=== PATIENT | female | born 1985 | race Caucasian/White ===

== ENCOUNTER 2018-10-04 08:25 | Emergency (ER) | payer MEDICAID, SELFPAY ==
[2018-10-04 08:33] VITALS: PULSE 91; RESP 17; RESP 4; RESP 8; O2SAT 94
[2018-10-04] MEDS: Albuterol/Ipratropium 3 ML UPD VIAL (08:33)
[2018-10-04 08:35] VITALS: BP 134/65; PULSE 89; RESP 17; O2SAT 94
--- NOTE | 2018-10-04 08:49 | DI.RAD_ITS ---
SYMPTOM/DIAGNOSIS: COUGH, SOB, ? PNEUMONIA PA AND LATERAL CHEST: The cardiac and mediastinal contours have a normal appearance. The lungs are well inflated and clear. No infiltrate or effusion is seen. IMPRESSION: Negative chest xray.
[2018-10-04] MEDS: Ondansetron 4 MG/2 ML VIAL (08:50)
--- NOTE | 2018-10-04 08:52 | W.ED.GENAD ---
Discharge Plan Disposition Patient Disposition: HOME Condition: Improving Discharge Details Chief Complaint: RespSymp Clinical Impression: Asthmatic bronchitis , chronic, Dyspnea, URI (upper respiratory infection) Primary Care Provider: None,None ED Provider: Nabila Briones Home Meds and New Rx's Prescriptions: New prednisone 50 mg tablet 50 mg PO DAILY 5 Days Qty: 5 RF: 0 azithromycin [Zithromax] 500 mg tablet 500 mg PO DAILY 4 Days Qty: 4 RF: 0 Continued ProAir HFA 90 mcg/actuation Hfa Aerosol Inhaler 1 puff INHALATION Q6H PRNRF: 0 Discharge Instructions Instructions: Asthma (ED), Upper Respiratory Infection (ED), Acute Bronchitis (ED) Additional Instructions: Go directly to [facility] to assist with filling her prescriptions. You will receive a call from care management regarding a follow-up appoint with primary care doctor. Return immediately to the emergency department any worsening or new concerning symptoms. Discharge Data Discharge Date/Time-TO BE ENTERED AT DEPARTURE: 10/04/18 10:38 Discharge Physician: Nabila Briones Medical Decision Making 32-year-old female with a history of asthma with URI symptoms for the past 2 weeks, and worsening shortness of breath since this morning. Arrived last night from [place] by airplane. Seen in ED in [place] 2 weeks ago and diagnosed with URI and sent home with steroid, antibiotics, and inhaler of which she could not fill due to lack of funds. Heart rate 90s. O2 sat 94% on room air. Patient feels improvement after first neb on arrival to ED. She has scattered wheezing throughout. Will give another neb treatment, due to recent travel and mild hypoxia, will check labs, d-dimer, chest x-ray and give a dose of Solu-Medrol and reassess. EKG notes a rate of 99, no acute ST elevation or depression. 1015 --patient feels much better after second neb treatment. Breath sounds improved and wheezing resolved. Still has somewhat diminished breath sounds in the bases for which she was offered a DuoNeb treatment but she declines and states she would like to go home. Labs and imaging reviewed and unremarkable. Normal white blood cell count. Negative d-dimer and troponin. Chest x-ray negative. Discussed with care management who discussed with patient at bedside regarding plans for filling prescriptions. Patient will go to [facility] today to assist with filling prescriptions. Will give 1 dose of Zithromax here as well as albuterol inhaler to go in addition to steroid and zithromax prescriptions. Also discussed with care management regarding plan for assistance with finding a primary care doctor. Patient instructed return here immediately if worse. Medical Records Medical records reviewed: Yes I reviewed the patient's medical records. Imaging Data Radiologic Study: Radiologist's impression: RAD:XR chest 2V PA & lateral SYMPTOM/DIAGNOSIS: COUGH, SOB, ? PNEUMONIA PA AND LATERAL CHEST: The cardiac and mediastinal contours have a normal appearance. The lungs are well inflated and clear. No infiltrate or effusion is seen. IMPRESSION: Negative chest xray. Lab Data Lab results reviewed: Yes I reviewed the patient's lab results. Laboratory Tests Range/Units 10/04/18 10/04/18 10/04/18 08:46 08:46 08:46 WBC (4.4-10.8) k/cumm 10.21 RBC (4.00-5.20) m/cumm 4.77 Hgb (12.0-15.5) g/dL 13.6 Hct (36.0-46.0) % 39.3 MCV (80-95) fL 82.4 MCH (27.0-33.0) pg 28.5 MCHC (32.0-36.0) g/dL 34.6 RDW (11.7-14.6) % 13.5 Plt Count (130-400) x1000/uL 279 MPV (8.0-11.0) fL 11.3 H Immature Gran % 0.3 Neutrophils % 58.7 Lymphocytes % 22.0 Monocytes % 10.4 Eosinophils % 8.3 Basophils % 0.3 Absolute Neutrophils (1.2-6.7) k/cumm 5.99 Absolute Lymphocytes (1.2-3.4) k/cumm 2.25 Absolute Monocytes (0.11-0.7) k/cumm 1.06 H Absolute Eosinophils (0.0-0.7) k/cumm 0.85 H Absolute Basophils (0.0-0.2) k/cumm 0.03 D-Dimer (<500) ng/mlFEU 235 Sodium (136-145) mmol/L 140 Potassium (3.5-5.1) mmol/L 3.4 L Chloride (98-107) mmol/L 105 Carbon Dioxide (21.0-32.0) mmol/L 24.1 Anion Gap (3-11) mmol/L 10.9 BUN (7-18) mg/dL 11 Creatinine (0.55-1.02) mg/dL 0.97 Estimated GFR/1.73 m2 (mL/min/1.73m2) >= 60.00 Glucose (70-100) mg/dL 105 H Calcium (8.5-10.1) mg/dL 8.9 Magnesium (1.8-2.4) mg/dL 2.0 Total Bilirubin (0.2-1.0) mg/dL 0.5 AST (15-37) U/L 18 ALT (12-78) U/L 32 Alkaline Phosphatase (46-116) U/L 72 Troponin I (0.00-0.06) ng/mL < 0.02 Total Protein (6.4-8.2) g/dL 7.5 Albumin (3.4-5.0) g/dL 3.6 ECG Data Attestation: I personally reviewed and interpreted this ECG (s) as follows: Interpretation: 0853: Rate of 99, sinus, no acute ST elevation or depression, QTC 477. QRS 104. HPI General Mode of arrival: ambulatory. Date/Time Provider Initiated Documentation: 10/04/18 08:34. Limitations to Documentation: no limitations. Information obtained by: patient. HPI Narrative: Patient is a 32-year-old female with a history of asthma who presents with shortness of breath since this morning. Patient states she has had dry cough, sore throat, runny nose, ear pain and intermittent shortness of breath for the past 2 weeks but states her shortness of breath became significantly worse and woke her up from sleep this morning. She states she had some shortness of breath before going to bed last night. She states last night she used her inhaler, and [id number] allergy medication, and applied Vicks. Patient states she recently ran out of her pro-air. She also admits to intermittent chest pain but denies any at present. She denies fever and states she did not receive a flu shot this year. Patient states she moved here from [place] last night in which she took 2 flights, 1 which was 90 minutes, and 1 which is 3 hours. She denies any leg pain or swelling or history of DVT or PE. Patient states she was seen in emergency department in [place] 2 weeks ago and diagnosed with URI and given steroids and neb treatment in the ED and discharged with steroid, antibiotic and inhaler but was not able to fill the prescription due to lack of funds. Patient denies any history of intubations. Related Data Home Medications Medication Instructions Recorded Confirmed ProAir HFA 1 puff INHALATION Q6H PRN 10/04/18 10/04/18 azithromycin [Zithromax] 500 mg PO DAILY 4 Days #4 tab 10/04/18 prednisone 50 mg PO DAILY 5 Days #5 tab 10/04/18 Previous Rx's Medication Instructions Recorded azithromycin [Zithromax] 500 mg PO DAILY 4 Days #4 tab 10/04/18 prednisone 50 mg PO DAILY 5 Days #5 tab 10/04/18 Allergies Allergy/AdvReac Type Severity Reaction Status Date / Time No Known Allergies Allergy Unverified 10/04/18 08:38 General Stated Complaint: RespSymp JEANETTE: 3 Review of Systems Review of Systems All systems reviewed & are unremarkable except as noted in HPI and below Constitutional Reports as per HPI, Denies chills and Denies fever(s) Eyes Denies blurry vision ENT Denies dizziness, Reports otalgia, Reports nasal congestion, Reports nasal discharge, Reports sore throat and Denies throat swelling Cardiovascular Reports chest pain and Reports dyspnea Respiratory Reports cough and Reports dyspnea Gastrointestinal Denies abdominal pain, Denies diarrhea and Denies vomiting Genitourinary Denies hematuria and Denies dysuria Musculoskeletal Denies back pain and Denies numbness Integumentary/Breasts Denies lesions and Denies rash Neurologic Denies dizziness and Denies numbness Allergic/Immunologic Denies throat swelling [facility] Medical History Scoliosis (Acute) Asthma (Chronic) Osteoarthritis (Chronic) Surgical History S/P wisdom tooth extraction (Acute) Social History Smoking/Tobacco Use Status: Never alcohol intake: current alcohol intake frequency: a few times a month substance use type: former substance user, marijuana and other Exam Const General: cooperative and healthy appearing Orientation: alert and awake HENMT Head: normal to inspection Ears: hearing grossly normal bilaterally, external ears normal and TM abnormal erythematous bilaterally General nose exam: external nose normal Face and sinus: normal facial exam Mouth: oral mucosae normal Teeth and gingiva: dentition normal Throat: posterior oropharynx normal Eyes General: appearance normal, both eyes and all related structures Eyelids: eyelids normal Pupils: PERRL EOM: EOM intact bilaterally Neck Neck: normal visual inspection Lymphatic: no lymphadenopathy noted Chest Chest: normal inspection of the chest Resp Effort & Inspection: normal respiratory effort and able to speak in complete sentences Auscultation: no rales, no rhonchi and wheezes scattered wheezes Cardio Rate: regular rate Rhythm: regular rhythm GI Inspection: normal to inspection Palpation: soft, not firm, no guarding, no hepatosplenomegaly, no masses and nontender Auscultation: normal bowel sounds Skin General skin exam: no rashes or lesions noted Neuro General: alert and awake Cognition: normal cognition Speech: speech normal Gait: normal gait Motor: muscle tone normal throughout Sensory Exam: no sensory deficits noted Extrem General: normal to inspection, full ROM, normal capillary refill, no calf tenderness and no edema Psych Appearance: grossly normal Mental Status: mental status grossly normal Speech and Movement: speech and movement normal Affect: normal affect Thought Process: normal Course Vital Signs Pulse 91 H 10/04/18 08:33 Respiratory Rate 17 10/04/18 08:33 Pulse Oximetry 94 L 10/04/18 08:33 Temperature Source Temporal Artery Scan 10/04/18 08:35 Pulse 89 10/04/18 08:35 Respiratory Rate 17 10/04/18 08:35 Respiratory Effort Short of Breath 10/04/18 08:43 Respiratory Depth Shallow 10/04/18 08:41 Blood Pressure 134/65 10/04/18 08:35 Blood Pressure Position Sitting 10/04/18 08:35 Pulse Oximetry 94 L 10/04/18 08:35 Oxygen Delivery Method Room Air 10/04/18 08:35 Oxygen Flow Rate 0 10/04/18 08:35 Pain Level 0 10/04/18 08:35
[2018-10-04] MEDS: Normal Saline Flush 10 ML SYR IVP (08:53)
--- NOTE | 2018-10-04 08:57 | ED.GENADUL_ITS ---
Discharge Plan Disposition Patient Disposition: HOME Condition: Improving Discharge Details Chief Complaint: RespSymp Clinical Impression: Asthmatic bronchitis , chronic, Dyspnea, URI (upper respiratory infection) Primary Care Provider: None,None ED Provider: Nabila Briones Home Meds and New Rx's Prescriptions: New prednisone 50 mg tablet 50 mg PO DAILY 5 Days Qty: 5 RF: 0 azithromycin [Zithromax] 500 mg tablet 500 mg PO DAILY 4 Days Qty: 4 RF: 0 Continued ProAir HFA 90 mcg/actuation Hfa Aerosol Inhaler 1 puff INHALATION Q6H PRNRF: 0 Discharge Instructions Instructions: Asthma (ED), Upper Respiratory Infection (ED), Acute Bronchitis (ED) Additional Instructions: Go directly to [facility] to assist with filling her prescriptions. You will receive a call from care management regarding a follow-up appoint with primary care doctor. Return immediately to the emergency department any worsening or new concerning symptoms. Discharge Data Discharge Date/Time-TO BE ENTERED AT DEPARTURE: 10/04/18 10:38 Discharge Physician: Nabila Briones Medical Decision Making 32-year-old female with a history of asthma with URI symptoms for the past 2 weeks, and worsening shortness of breath since this morning. Arrived last night from [place] by airplane. Seen in ED in [place] 2 weeks ago and diagnosed with URI and sent home with steroid, antibiotics, and inhaler of which she could not fill due to lack of funds. Heart rate 90s. O2 sat 94% on room air. Patient feels improvement after first neb on arrival to ED. She has scattered wheezing throughout. Will give another neb treatment, due to recent travel and mild hypoxia, will check labs, d-dimer, chest x-ray and give a dose of Solu-Medrol and reassess. EKG notes a rate of 99, no acute ST elevation or depression. 1015 --patient feels much better after second neb treatment. Breath sounds improved and wheezing resolved. Still has somewhat diminished breath sounds in the bases for which she was offered a DuoNeb treatment but she declines and states she would like to go home. Labs and imaging reviewed and unremarkable. Normal white blood cell count. Negative d-dimer and troponin. Chest x-ray negative. Discussed with care management who discussed with patient at bedside regarding plans for filling prescriptions. Patient will go to [facility] today to assist with filling prescriptions. Will give 1 dose of Zithromax here as well as albuterol inhaler to go in addition to steroid and zithromax prescriptions. Also discussed with care management regarding plan for assistance with finding a primary care doctor. Patient instructed return here immediately if worse. Medical Records Medical records reviewed: Yes I reviewed the patient's medical records. Imaging Data Radiologic Study: Radiologist's impression: RAD:XR chest 2V PA & lateral SYMPTOM/DIAGNOSIS: COUGH, SOB, ? PNEUMONIA PA AND LATERAL CHEST: The cardiac and mediastinal contours have a normal appearance. The lungs are well inflated and clear. No infiltrate or effusion is seen. IMPRESSION: Negative chest xray. Lab Data Lab results reviewed: Yes I reviewed the patient's lab results. Laboratory Tests Range/Units 10/04/18 10/04/18 10/04/18 08:46 08:46 08:46 WBC (4.4-10.8) k/cumm 10.21 RBC (4.00-5.20) m/cumm 4.77 Hgb (12.0-15.5) g/dL 13.6 Hct (36.0-46.0) % 39.3 MCV (80-95) fL 82.4 MCH (27.0-33.0) pg 28.5 MCHC (32.0-36.0) g/dL 34.6 RDW (11.7-14.6) % 13.5 Plt Count (130-400) x1000/uL 279 MPV (8.0-11.0) fL 11.3 H Immature Gran % 0.3 Neutrophils % 58.7 Lymphocytes % 22.0 Monocytes % 10.4 Eosinophils % 8.3 Basophils % 0.3 Absolute Neutrophils (1.2-6.7) k/cumm 5.99 Absolute Lymphocytes (1.2-3.4) k/cumm 2.25 Absolute Monocytes (0.11-0.7) k/cumm 1.06 H Absolute Eosinophils (0.0-0.7) k/cumm 0.85 H Absolute Basophils (0.0-0.2) k/cumm 0.03 D-Dimer (<500) ng/mlFEU 235 Sodium (136-145) mmol/L 140 Potassium (3.5-5.1) mmol/L 3.4 L Chloride (98-107) mmol/L 105 Carbon Dioxide (21.0-32.0) mmol/L 24.1 Anion Gap (3-11) mmol/L 10.9 BUN (7-18) mg/dL 11 Creatinine (0.55-1.02) mg/dL 0.97 Estimated GFR/1.73 m2 (mL/min/1.73m2) >= 60.00 Glucose (70-100) mg/dL 105 H Calcium (8.5-10.1) mg/dL 8.9 Magnesium (1.8-2.4) mg/dL 2.0 Total Bilirubin (0.2-1.0) mg/dL 0.5 AST (15-37) U/L 18 ALT (12-78) U/L 32 Alkaline Phosphatase (46-116) U/L 72 Troponin I (0.00-0.06) ng/mL < 0.02 Total Protein (6.4-8.2) g/dL 7.5 Albumin (3.4-5.0) g/dL 3.6 ECG Data Attestation: I personally reviewed and interpreted this ECG (s) as follows: Interpretation: 0853: Rate of 99, sinus, no acute ST elevation or depression, QTC 477. QRS 104. HPI General Mode of arrival: ambulatory . Date/Time Provider Initiated Documentation: 10/04/18 08:34 . Limitations to Documentation: no limitations . Information obtained by: patient . HPI Narrative: Patient is a 32-year-old female with a history of asthma who presents with shortness of breath since this morning. Patient states she has had dry cough, sore throat, runny nose, ear pain and intermittent shortness of breath for the past 2 weeks but states her shortness of breath became significantly worse and woke her up from sleep this morning. She states she had some shortness of breath before going to bed last night. She states last night she used her inhaler, and rwsj-vbi-ofbxlnh allergy medication, and applied Vicks. Patient states she recently ran out of her pro- air. She also admits to intermittent chest pain but denies any at present. She denies fever and states she did not receive a flu shot this year. Patient states she moved here from [place] last night in which she took 2 flights, 1 which was 90 minutes, and 1 which is 3 hours. She denies any leg pain or swelling or history of DVT or PE. Patient states she was seen in emergency department in [place] 2 weeks ago and diagnosed with URI and given steroids and neb treatment in the ED and discharged with steroid, antibiotic and inhaler but was not able to fill the prescription due to lack of funds. Patient denies any history of intubations. Related Data Home Medications Medication Instructions Recorded Confirmed ProAir HFA 1 puff INHALATION Q6H PRN 10/04/18 10/04/18 azithromycin [Zithromax] 500 mg PO DAILY 4 Days #4 tab 10/04/18 prednisone 50 mg PO DAILY 5 Days #5 tab 10/04/18 Previous Rx's Medication Instructions Recorded azithromycin [Zithromax] 500 mg PO DAILY 4 Days #4 tab 10/04/18 prednisone 50 mg PO DAILY 5 Days #5 tab 10/04/18 Allergies Allergy/AdvReac Type Severity Reaction Status Date / Time No Known Allergies Allergy Unverified 10/04/18 08:38 General Stated Complaint: RespSymp JEANETTE: 3 Review of Systems Review of Systems All systems reviewed & are unremarkable except as noted in HPI and below Constitutional Reports as per HPI, Denies chills and Denies fever(s) Eyes Denies blurry vision ENT Denies dizziness, Reports otalgia, Reports nasal congestion, Reports nasal discharge, Reports sore throat and Denies throat swelling Cardiovascular Reports chest pain and Reports dyspnea Respiratory Reports cough and Reports dyspnea Gastrointestinal Denies abdominal pain, Denies diarrhea and Denies vomiting Genitourinary Denies hematuria and Denies dysuria Musculoskeletal Denies back pain and Denies numbness Integumentary/Breasts Denies lesions and Denies rash Neurologic Denies dizziness and Denies numbness Allergic/Immunologic Denies throat swelling [facility] Medical History Scoliosis (Acute) Asthma (Chronic) Osteoarthritis (Chronic) Surgical History S/P wisdom tooth extraction (Acute) Social History Smoking/Tobacco Use Status: Never alcohol intake: current alcohol intake frequency: a few times a month substance use type: former substance user, marijuana and other Exam Const General: cooperative and healthy appearing Orientation: alert and awake HENMT Head: normal to inspection Ears: hearing grossly normal bilaterally, external ears normal and TM abnormal erythematous bilaterally General nose exam: external nose normal Face and sinus: normal facial exam Mouth: oral mucosae normal Teeth and gingiva: dentition normal Throat: posterior oropharynx normal Eyes General: appearance normal, both eyes and all related structures Eyelids: eyelids normal Pupils: PERRL EOM: EOM intact bilaterally Neck Neck: normal visual inspection Lymphatic: no lymphadenopathy noted Chest Chest: normal inspection of the chest Resp Effort & Inspection: normal respiratory effort and able to speak in complete sentences Auscultation: no rales, no rhonchi and wheezes scattered wheezes Cardio Rate: regular rate Rhythm: regular rhythm GI Inspection: normal to inspection Palpation: soft, not firm, no guarding, no hepatosplenomegaly, no masses and nontender Auscultation: normal bowel sounds Skin General skin exam: no rashes or lesions noted Neuro General: alert and awake Cognition: normal cognition Speech: speech normal Gait: normal gait Motor: muscle tone normal throughout Sensory Exam: no sensory deficits noted Extrem General: normal to inspection, full ROM, normal capillary refill, no calf tenderness and no edema Psych Appearance: grossly normal Mental Status: mental status grossly normal Speech and Movement: speech and movement normal Affect: normal affect Thought Process: normal Course Vital Signs Pulse 91 H 10/04/18 08:33 Respiratory Rate 17 10/04/18 08:33 Pulse Oximetry 94 L 10/04/18 08:33 Temperature Source Temporal Artery Scan 10/04/18 08:35 Pulse 89 10/04/18 08:35 Respiratory Rate 17 10/04/18 08:35 Respiratory Effort Short of Breath 10/04/18 08:43 Respiratory Depth Shallow 10/04/18 08:41 Blood Pressure 134/65 10/04/18 08:35 Blood Pressure Position Sitting 10/04/18 08:35 Pulse Oximetry 94 L 10/04/18 08:35 Oxygen Delivery Method Room Air 10/04/18 08:35 Oxygen Flow Rate 0 10/04/18 08:35 Pain Level 0 10/04/18 08:35
[2018-10-04] MEDS: Albuterol 2.5 MG/3 ML INH SOLN VIAL UPD (09:01)
[2018-10-04] MEDS: methylPREDNISolone SUCC 125 MG VIAL IVP (09:01)
[2018-10-04 09:03] VITALS: RESP 1; RESP 4
[2018-10-04 09:04] LABS: Abs Immature Grans 0.03 k/cumm (0.0-0.09); Absolute Basophil Count 0.03 k/cumm (0.0-0.2); Absolute Eosinophil Count 0.85 k/cumm (0.0-0.7); Absolute Lymphocyte Count 2.25 k/cumm (1.2-3.4); Absolute Monocyte Count 1.06 k/cumm (0.11-0.7); Absolute Neutrophil Count 5.99 k/cumm (1.2-6.7); Basophils % 0.3; Eosinophils % 8.3; HCT 39.3 % (36.0-46.0); HGB 13.6 g/dL (12.0-15.5); Immature Grans % 0.3; Mean Corp. HGB Concentration 34.6 g/dL (32.0-36.0); Mean Corpuscular Hemoglobin 28.5 pg (27.0-33.0); Mean Corpuscular Volume 82.4 fL (80-95); Mean Platelet Volume 11.3 fL (8.0-11.0); Monocytes % 10.4; Neutrophils % 58.7; Platelet Count 279 x1000/uL (130-400); RBC 4.77 m/cumm (4.00-5.20); RBC Distribution Width 13.5 % (11.7-14.6); White Blood Cell Count 10.21 k/cumm (4.4-10.8)
[2018-10-04] MEDS: Normal Saline 1,000 ML 1000 ML IV (09:11)
--- NOTE | 2018-10-04 09:11 | NUR.NOTE ---
Nursing Note: Pt. is ambulatory to restroom, steady gait, significantly improved SOB.
[2018-10-04 09:20] LABS: ALT 32 U/L (12-78); AST 18 U/L (15-37); Albumin 3.6 g/dL (3.4-5.0); Alkaline Phosphatase 72 U/L (46-116); Anion Gap 10.9 mmol/L (3-11); BUN 11 mg/dL (7-18); Bilirubin, Total 0.5 mg/dL (0.2-1.0); CO2 24.1 mmol/L (21.0-32.0); CREATININE 0.97 mg/dL (0.55-1.02); Calcium 8.9 mg/dL (8.5-10.1); Chloride 105 mmol/L (98-107); Glucose 105 mg/dL (70-100); Potassium 3.4 mmol/L (3.5-5.1); Sodium 140 mmol/L (136-145); Total Protein 7.5 g/dL (6.4-8.2)
[2018-10-04 09:26] LABS: Troponin I < 0.02 ng/mL (0.00-0.06)
[2018-10-04 09:40] LABS: D-Dimer 235 ng/mlFEU (<500)
[2018-10-04] MEDS: Albuterol HFA 8 GM 60 PUFF INH IH (10:28)
[2018-10-04] MEDS: Azithromycin 250 MG TAB 500 MG PO (10:29)
--- NOTE | 2018-10-04 10:30 | PDOC.ERCMPRO ---
Care Management Progress Note 10/04-Dr. Persaud requested assistance with Gabby as she is new to [facility]. Patient seen for asthma exacerbation and URI. Met with Gabby. Gabby states she was seen in a [place] emergency department a couple weeks ago but did not get her prescriptions filled. She flew into [place] from [place] last evening and is living with her cousins in [place]. Discussed home/work situation. Gabby states she does not work as she just arrived last evening. Discussed [facility] for insurance and assistance with paying for scripts. Gabby gave this lpn care manager to speak with her cousin Jonna about [facility]. Spoke with Jonna and Jonna stated she would bring Gabby over to [facility] once she is discharged from ED. Discussed above with Dr. Briones and Ayde RN and both are in agreement with plan. Dr. Briones will be discharging Gabby home. Called [facility] and updated Zully Sharpe on the above and to notify her that patient would be coming right over. Gabby also needs PCP f/u in one week for asthma exacerbation, URI and to establish care. Gabby and Jonna have this CM's contact information if further assistance is needed.
--- NOTE | 2018-10-04 10:36 | CMPROGNOTE_ITS ---
Care Management Progress Note 10/04-Dr. Persaud requested assistance with Gabby as she is new to [facility]. Patient seen for asthma exacerbation and URI. Met with Gabby. Gabby states she was seen in a [place] emergency department a couple weeks ago but did not get her prescriptions filled. She flew into [place] from [place] last evening and is living with her cousins in [place]. Discussed home/work situation. Gabby states she does not work as she just arrived last evening. Discussed [facility] for insurance and assistance with paying for scripts. Gabby gave this anesthesiologist and critical care to speak with her cousin Jonna about [facility]. Spoke with Jonna and Jonna stated she would bring Gabby over to [facility] once she is discharged from ED. Discussed above with Dr. Briones and Ayde RN and both are in agreement with plan. Dr. Briones will be discharging Gabby home. Called [facility] and updated Zully Sharpe on the above and to notify her that patient would be coming right over. Gabby also needs PCP f/u in one week for asthma exacerbation, URI and to establish care. Gabby and Jonna have this CM's contact information if further assistance is needed.
== END 2018-10-04 10:38 | disposition home or self-care (01) ==
PROVIDERS: Emergency Provider Physician Assistant
DX: J45.909 Unspecified asthma, uncomplicated (principal); J06.9 Acute upper respiratory infection, unspecified; R06.9 Unspecified abnormalities of breathing
CPT/HCPCS: 36415; 80053; 93005; 94640; 96361; 96374; 99285; 71046; 83735; 84484; 85025; 85379; 93010; J2405; J2930; J7613; J7620

== ENCOUNTER 2018-12-26 03:37 | Outpatient (CLI) | payer OTHER, MEDICAID, SELFPAY ==
--- NOTE | 2018-12-26 10:00 | DI.RAD_ITS ---
SYMPTOMS/DIAGNOSIS: LOW BACK PAIN, DISABILITY DETERMINATION LUMBAR SPINE: The bony structures are normally mineralized. The vertebral bodies and disc spaces are intact. The pedicle, spinous and transverse processes are well maintained. The sacrum and sacroiliac joints appear unremarkable. SUMMARY: Normal lumbosacral spine. Patient identified by photo drivers license.
== END 2018-12-26 03:57 ==
PROVIDERS: Visit Provider Pediatrics Pediatric Rheumatology
DX: M54.5 Low back pain (principal); Z02.71 Encounter for disability determination
CPT/HCPCS: 72100

== ENCOUNTER 2019-04-12 14:47 | Emergency (ER) | payer MEDICAID, SELFPAY ==
[2019-04-12 14:52] VITALS: BP 131/74; PULSE 75; RESP 18; TEMP 37.1; O2SAT 97
--- NOTE | 2019-04-12 15:11 | ED.GENADUL_ITS ---
Discharge Plan Disposition Patient Disposition: HOME Condition: Stable Discharge Details Chief Complaint: Urinary Clinical Impression: UTI (urinary tract infection) Primary Care Provider: None,None ED Provider: Nabila Briones Home Meds and New Rx's Prescriptions: New cephalexin [Keflex] 500 mg capsule 500 mg PO BID 5 Days Qty: 10 RF: 0 Continued albuterol sulfate [ProAir HFA] 90 mcg/actuation Hfa Aerosol Inhaler 1 puff INHALATION Q6H PRNRF: 0 Symbicort 80-4.5 mcg/actuation Hfa Aerosol Inhaler INHALATION RF: 0 Symbicort 160-4.5 mcg/actuation Hfa Aerosol Inhaler 2 puff INHALATION BID RF: 0 Discharge Instructions Instructions: Urinary Tract Infection in Women (ED) Additional Instructions: Take the antibiotics until finished. Alternate Tylenol and Motrin as needed and directed for pain. You will receive a call from care management regarding a follow-up appointment with a primary care doctor. Return immediately to the emergency department if you develop any worsening or new concerning symptoms. Discharge Data Discharge Date/Time-TO BE ENTERED AT DEPARTURE: 04/12/19 16:28 Discharge Physician: Nabila Briones Medical Decision Making 33-year-old female presents with urinary frequency, urgency, lower abdominal pressure since yesterday. Vitals within normal limits. Patient appears nontoxic. Abdomen soft nontender. No CVA tenderness. Preg test negative. Appears most likely c/w UTI. Doubt pyelonephritis as pt has no fever, vomiting, back pain. Denies vaginal discharge and no fever so doubt cervicitis. Pt offered Motrin or Tylenol here but declines. 1600 --urinalysis notes trace leuks and 0-2 WBCs. In setting of UTI symptoms, will treat with antibiotics. Also discussed that this could be interstitial cystitis which is not treated with antibiotics but patient is requesting anti- medics at this time. Patient is declining labs or imaging at this time. Will place patient on care management list to arrange for a follow-up appointment with a primary care doctor and for referral to urology if symptoms do not improve or worsen. She is instructed to return here immediately if she has any worsening or new concerning symptoms. Medical Records Medical records reviewed: Yes I reviewed the patient's medical records. Lab Data Lab results reviewed: Yes I reviewed the patient's lab results. Laboratory Tests Range/Units 04/12/19 15:05 Urine Color (Yellow) Yellow Urine Clarity (Clear) Sl cloudy Urine pH (5-8) 7.0 Ur Specific Griffin (1.005-1.025) 1.020 Urine Protein (Negative) mg/dL Negative Urine Ketones (Negative) mg/dL Negative Urine Blood (Negative) Negative Urine Nitrite (Negative) Negative Urine Bilirubin (Negative) Negative Urine Urobilinogen (Up TO 0.2) EU/dL 1.0 H Ur Leukocyte Esterase (Negative) Trace H Urine RBC (0-2) 0-2 Urine WBC (0-5) HPF 0-2 Ur Epithelial Cells (Negative) HPF Many Urine Crystals (Negative) HPF Negative Urine Bacteria (Negative) HPF Rare Urine Casts (Negative) LPF Negative Urine Mucus (Negative) Negative Ur Culture Indicated? No/sq. contamination Urine Glucose (Negative) mg/dL Negative Also discussed this could be interstitial cystitis which is not treated with antibiotics but patient would like antibiotic's at this time HPI General Mode of arrival: ambulatory . Date/Time Provider Initiated Documentation: 04/12/19 14:58 . Limitations to Documentation: no limitations . Information obtained by: patient . HPI Narrative: Patient is a 33-year-old female presents the ED with complaint of urinary frequency, urgency and lower abdominal pressure since yesterday. Patient states the pain is currently 1/10. She admits to worsening of symptoms just prior to urination and then this improves. She denies any fever, vomiting, back pain, dysuria or vaginal discharge. She states she is sexually active with her and does not use protection. She is unsure of her last menstrual period and states it is usually irregular. She states she does not have a primary care doctor and is unsure about how to get one. Related Data Home Medications Medication Instructions Recorded Confirmed albuterol sulfate [ProAir HFA] 1 puff INHALATION Q6H PRN 10/04/18 04/12/19 Symbicort 2 puff INHALATION BID 04/12/19 04/12/19 Symbicort INHALATION 04/12/19 cephalexin [Keflex] 500 mg PO BID 5 Days #10 cap 04/12/19 Previous Rx's Medication Instructions Recorded cephalexin [Keflex] 500 mg PO BID 5 Days #10 cap 04/12/19 Allergies Allergy/AdvReac Type Severity Reaction Status Date / Time No Known Allergies Allergy Unverified 10/04/18 08:38 General Stated Complaint: Urinary JEANETTE: 3 Review of Systems Review of Systems All systems reviewed & are unremarkable except as noted in HPI and below Constitutional Reports as per HPI, Denies chills and Denies fever(s) Eyes Denies blurry vision ENT Denies dizziness, Denies sore throat and Denies throat swelling Cardiovascular Denies chest pain and Denies dyspnea Respiratory Denies cough and Denies dyspnea Gastrointestinal Reports abdominal pain, Denies diarrhea and Denies vomiting Genitourinary Denies hematuria, Reports urinary frequency, Denies dysuria and Reports urinary urgency Musculoskeletal Denies back pain and Denies numbness Integumentary/Breasts Denies lesions and Denies rash Neurologic Denies dizziness, Denies focal weakness and Denies numbness Allergic/Immunologic Denies throat swelling PFSH Surgical History S/P wisdom tooth extraction (Acute) Social History Smoking/Tobacco Use Status: Never Alcohol Intake: current Alcohol Intake frequency: a few times a month Drug use: Never Substance use type: does not use, former substance user and other Do you feel safe in your relationship?: Yes Additional Social history: I will start smoking marijuana again when I am off probabtion Exam Const General: cooperative, healthy appearing and no acute distress HENMT Head: normal to inspection Face and sinus: normal facial exam Eyes General: appearance normal, both eyes and all related structures Pupils: PERRL EOM: EOM intact bilaterally Neck Neck: normal visual inspection and No submandibular swelling Lymphatic: no lymphadenopathy noted Chest Chest: normal inspection of the chest and no tenderness Resp Effort & Inspection: normal respiratory effort and able to speak in complete sentences Auscultation: clear to auscultation bilaterally Cardio Rate: regular rate Rhythm: regular rhythm GI Inspection: normal to inspection Palpation: soft, not firm, not rigid and nontender Auscultation: normal bowel sounds Back/Spine/Pelvis Back: no CVA tenderness Thoracic/Lumbar Spine: thoracic and lumbar spine normal to inspection Pelvis: no pain with anterior-posterior compression Skin General skin exam: no rashes or lesions noted Neuro General: alert, awake and oriented x3 Cognition: normal cognition Speech: speech normal Motor: muscle tone normal throughout Sensory Exam: no sensory deficits noted Extrem General: normal to inspection, full ROM, normal capillary refill, no calf tenderness bilaterally and no edema Psych Appearance: grossly normal Mental Status: mental status grossly normal Speech and Movement: speech and movement normal Affect: normal affect Course Vital Signs Temperature 98.8 F 04/12/19 14:52 Pulse 75 04/12/19 14:52 Respiratory Rate 18 04/12/19 14:52 Blood Pressure 131/74 04/12/19 14:52 Pulse Oximetry 97 04/12/19 14:52 Temperature 98.8 F 04/12/19 14:52 Temperature Source Skin 04/12/19 14:52 Pulse 75 04/12/19 14:52 Respiratory Rate 18 04/12/19 14:52 Respiratory Effort Non-Labored 04/12/19 14:52 Blood Pressure 131/74 04/12/19 14:52 Blood Pressure Position Sitting 04/12/19 14:52 Pulse Oximetry 97 04/12/19 14:52 Oxygen Delivery Method Room Air 04/12/19 14:52 Oxygen Flow Rate 0 04/12/19 14:52
[2019-04-12 15:21] LABS: Bilirubin Negative (Negative); Blood Negative (Negative); Clarity Sl Cloudy (Clear); Glucose Negative (Negative); Ketones Negative (Negative); Leukocyte Esterase Trace (Negative); Nitrite Negative (Negative)
[2019-04-12 15:31] LABS: Bacteria Rare HPF (Negative); C & S Indicated? No/Sq. Contamination; Casts Negative LPF (Negative); Crystals Negative HPF (Negative); Epithelial Cells Many HPF (Negative); Mucus Negative (Negative); RBC 0-2 (0-2); WBC 0-2 HPF (0-5)
--- NOTE | 2019-04-13 03:17 | NUR.NOTE ---
Nursing Note: FAXED REFERAL TO ON 04/12/19
== END 2019-04-12 16:28 | disposition home or self-care (01) ==
PROVIDERS: Emergency Provider Physician Assistant
DX: N39.0 Urinary tract infection, site not specified (principal)
CPT/HCPCS: 81025; 99283; 81003; 81015

== ENCOUNTER 2019-07-22 21:08 | Emergency (ER) | payer MEDICAID, SELFPAY ==
[2019-07-22 21:14] VITALS: BP 123/81; PULSE 87; RESP 18; TEMP 36.5; O2SAT 97
--- NOTE | 2019-07-22 21:46 | ED.GENADUL_ITS ---
Discharge Plan Disposition Patient Disposition: HOME Condition: Good Discharge Details Chief Complaint: Nausea/Vomit/Diar Clinical Impression: Nausea & vomiting Primary Care Provider: None,None ED Provider: Marlen Waite Home Meds and New Rx's Prescriptions: Continued albuterol sulfate [ProAir HFA] 90 mcg/actuation Hfa Aerosol Inhaler 1 puff INHALATION Q6H PRNRF: 0 Symbicort 80-4.5 mcg/actuation Hfa Aerosol Inhaler INHALATION RF: 0 Symbicort 160-4.5 mcg/actuation Hfa Aerosol Inhaler 2 puff INHALATION BID RF: 0 Discharge Instructions Instructions: Acute Nausea and Vomiting (ED) Additional Instructions: Encourage hydration. Please continue vitamins. Cut back on marijuana. Please follow-up with women's wellness regarding care. If you develop abdominal pain, inability stay hydrated or other new/worsening symptoms please seek care urgently once again. Referrals: Mercy Pollock MD [ [facility] STAFF PHYSICIAN] - Medical Decision Making Patient is a 33 year old female endorsing symptoms. Vomited x 2 tonight. Endorses fatigue, morning nausea. 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 No fevers/chills. Denies abomdinal pain, no vaginal discharge. No change in urinary or bowel habits. Has taken 2 home tests, both of which were negative. At this time is asymptomatic. UPT negative. Exam is benign. No abdominal discomfort. Lungs clear, she appears well hydrated. VS WNL. Labs significant for mild luekocytosis with WBC 12.3. CMP WNL, Hcg Quant 1. small amount of blood in UA. Discussed findings with [facility] patient. Advised f/u with [facility]'s wellness. Discussed care. She and her partner both smoke marijuana daily, discussed cessation. She is taking a vitamin. Advised that her nausea/vomiting tonight may be associated with viral illness. As she is well hydrated and has had minimal symptoms, advised close monitoring. She was given return precaustions. All of her questions and concerns were addressed, she is in agreement with this plan. HPI General Mode of arrival: ambulatory . Date/Time Provider Initiated Documentation: 07/22/19 21:25 . Limitations to Documentation: no limitations . Information obtained by: patient, family () and RN notes reviewed . HPI Narrative: Patient is a 33 year old female, accompanied by , with concern for . 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 Reports vomiting x 2 this evening. Not nauseated at this time. Has been able to hydrate well. No abdominal pain. No vaginal discharge, no changein bowel/bladder habits. Report that she has had 2 miscarriages, the first was after trauma in the second trimester. Patient underwent subsequent D&C. Reports normal monthly menses. States she has been with signficant other for the past 7 months. They ahve been trying to get for the past 2 months. Concerned that so far home tests have been negative. Related Data Home Medications Medication Instructions Recorded Confirmed albuterol sulfate [ProAir HFA] 1 puff INHALATION Q6H PRN 10/04/18 07/22/19 Symbicort 2 puff INHALATION BID 04/12/19 04/12/19 Symbicort INHALATION 04/12/19 Allergies Allergy/AdvReac Type Severity Reaction Status Date / Time No Known Allergies Allergy Unverified 07/22/19 21:21 General Stated Complaint: Nausea/Vomit/Diar JEANETTE: 3 Review of Systems Constitutional Constitutional: Reports as per HPI, Denies chills, Denies fatigue, Denies fever(s) and Denies headache(s) ENT Ears, Nose, Mouth, and Throat: Denies headache(s) Cardiovascular Cardiovascular: Reports as per HPI, Denies chest pain and Denies dyspnea Respiratory Respiratory: Reports as per HPI, Denies cough and Denies dyspnea Gastrointestinal Gastrointestinal: Denies abdominal pain, Denies bloating, Denies change in stool character, Denies cramping, Denies fecal incontinence, Denies diarrhea, Denies loose stools, Reports nausea and Reports vomiting Genitourinary Genitourinary: Denies abnormal vaginal bleeding, Denies genital pruritis, Denies genital lesions, Reports light periods, Denies dyspareunia, Denies dysmenorrhea, Denies dysuria, Denies pelvic pain, Denies sexual dysfunction, Denies flank pain, Denies urinary incontinence, Denies urinary urgency, Denies vaginal discharge, Denies vaginal dryness and Denies vaginal odor Musculoskeletal Musculoskeletal: Reports as per HPI and Reports back pain (chronic, unchanged back pain) Integumentary/Breasts Skin/Breast: Reports as per HPI and Denies rash Neurologic Neurologic: Reports as per HPI and Denies headache(s) Endocrine Endocrine: Denies fatigue [facility] Medical History Asthma (Chronic) Osteoarthritis (Chronic) Scoliosis (Acute) Surgical History S/P wisdom tooth extraction (Acute) Social History Smoking/Tobacco Use Status: Never Alcohol Intake: current Alcohol Intake frequency: holidays/special occasions only Drug use: Never Substance use type: marijuana and other Do you feel safe at home: Yes Do you feel safe in your relationship?: Yes Exam Const General: cooperative, healthy appearing, comfortable, no acute distress and well developed Nutritional Appearance: well nourished and overweight Orientation: alert and awake HENMT Head: normal to inspection Mouth: moist mucous membranes Resp Effort & Inspection: normal respiratory effort, able to speak in complete sentences and no respiratory distress Auscultation: clear to auscultation bilaterally, no rales, no rhonchi and no wheezes Cardio Rate: regular rate Rhythm: regular rhythm Heart Sounds: S1 normal and S2 normal GI Inspection: normal to inspection and obesity Palpation: soft, no hepatosplenomegaly, not firm, no guarding, no masses, not rigid and nontender Percussion: normal to percussion Auscultation: normal bowel sounds Back/Spine/Pelvis Back: no CVA tenderness Skin General skin exam: no rashes or lesions noted Trauma: no lacerations or abrasions Neuro General: alert and awake Cognition: normal cognition Speech: speech normal Gait: normal gait Psych Appearance: grossly normal and well kempt Mental Status: mental status grossly normal Speech and Movement: speech and movement normal Course Vital Signs Vital signs: Vital Signs Temperature 36.5 C 07/22/19 21:14 Pulse 87 07/22/19 21:14 Respiratory Rate 18 07/22/19 21:14 Blood Pressure 123/81 07/22/19 21:14 Pulse Oximetry 97 07/22/19 21:14 Temperature 36.5 C 07/22/19 21:14 Temperature Source Temporal Artery Scan 07/22/19 21:14 Pulse 87 07/22/19 21:14 Respiratory Rate 18 07/22/19 21:14 Respiratory Effort Incrsd Work of Breathing 07/22/19 21:18 Blood Pressure 123/81 07/22/19 21:14 Blood Pressure Position Sitting 07/22/19 21:14 Pulse Oximetry 97 07/22/19 21:14 Oxygen Delivery Method Room Air 07/22/19 21:14 Oxygen Flow Rate 0 07/22/19 21:14 Lab/Test Results Lab/Test Results: POC- Test(urine) Negative
[2019-07-22 21:47] LABS: Bilirubin Negative (Negative); Blood Small (Negative); Clarity Clear (Clear); Glucose Negative (Negative); Ketones Negative (Negative); Leukocyte Esterase Negative (Negative); Nitrite Negative (Negative); Urobilinogen 0.2 EU/dL (Up TO 0.2); pH 5.5 (5-8)
[2019-07-22 21:58] LABS: Bacteria Rare HPF (Negative); C & S Indicated? No; Casts Negative LPF (Negative); Crystals Negative HPF (Negative); Epithelial Cells Few HPF (Negative); Mucus Negative (Negative); WBC Negative HPF (0-5)
[2019-07-22 22:34] LABS: Abs Immature Grans 0.03 k/cumm (0.0-0.09); Absolute Basophil Count 0.05 k/cumm (0.0-0.2); Absolute Eosinophil Count 0.38 k/cumm (0.0-0.7); Absolute Lymphocyte Count 3.31 k/cumm (1.2-3.4); Absolute Monocyte Count 0.95 k/cumm (0.11-0.7); Absolute Neutrophil Count 7.59 k/cumm (1.2-6.7); Basophils % 0.4; Eosinophils % 3.1; HCT 42.8 % (36.0-46.0); HGB 14.4 g/dL (12.0-15.5); Immature Grans % 0.2; Lymphocytes % 26.9; Mean Corp. HGB Concentration 33.6 g/dL (32.0-36.0); Mean Corpuscular Hemoglobin 28.5 pg (27.0-33.0); Mean Corpuscular Volume 84.8 fL (80-95); Mean Platelet Volume 10.4 fL (8.0-11.0); Monocytes % 7.7; Neutrophils % 61.7; Platelet Count 331 x1000/uL (130-400); RBC 5.05 m/cumm (4.00-5.20); RBC Distribution Width 13.3 % (11.7-14.6)
[2019-07-22 22:59] LABS: ALT 30 U/L (14-59); AST 16 U/L (15-37); Albumin 4.1 g/dL (3.4-5.0); Alkaline Phosphatase 70 U/L (46-116); Anion Gap 7.3 mmol/L (3-11); BUN 12 mg/dL (7-18); Bilirubin, Total 0.3 mg/dL (0.2-1.0); CO2 29.7 mmol/L (21.0-32.0); CREATININE 0.87 mg/dL (0.55-1.02); Calcium 9.5 mg/dL (8.5-10.1); Chloride 103 mmol/L (98-107); Glucose 83 mg/dL (70-100); HCG Quant, Pregnancy 1 mIU/mL (1-3); Potassium 3.8 mmol/L (3.5-5.1); Sodium 140 mmol/L (136-145); TSH (W/Ref FT4) 3.14 uIU/mL (0.36-3.74)
== END 2019-07-22 23:23 | disposition home or self-care (01) ==
PROVIDERS: Emergency Provider Physician Assistant
DX: R11.0 Nausea (principal)
CPT/HCPCS: 36415; 80053; 81025; 99283; 81003; 81015; 84443; 84702; 85025; 99282

== ENCOUNTER 2019-10-30 20:45 | Emergency (ER) | payer SELFPAY ==
[2019-10-30 20:49] VITALS: BP 114/78; PULSE 90; RESP 18; TEMP 36.3; O2SAT 98
--- NOTE | 2019-10-30 20:57 | W.ED.GENAD ---
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 You may use Tylenol and/or ibuprofen as needed for discomfort. Please take the metronidazole as prescribed. Please follow-up with women's wellness for reevaluation. If you develop fever/chills, inability stay hydrated, increased pain or other new/worsening symptom please seek care urgently once again. Referrals: Mercy Pollock MD [ [facility] STAFF PHYSICIAN] - Discharge Data Discharge Date/Time-TO BE ENTERED AT DEPARTURE: 10/30/19 23:15 Medical Decision Making Patient is a 33 year old female, accompanied by significant other, with c/c of vaginal discharge that began 3 days ago. She states that she had a miscarriage 2 weeks ago. States that she did not have a missed menses, had negative tests at home. However, patient reports that she passed a approximate 3 inch fetus that was well-developed, patient has a hand drawn picture of what she passed. Patient is trying to conceive. Endorses mild burning with urination. STates hx of back discomfort since onset of symptoms but reports that this has resolved. No fevers/chills. No change in bowel habits. No hx of STD, significant other denies hx of STD. Denies nausea or vomiting. No persisent bleeding since her spontaneous . On exam, patient appears non toxic. VS WNL. Lungs clear, abdomen benign. Will preform vaginal exam, obtain UA. Vaginal exam reveals yellow discharge in vaginal vault. No lesions. Cervix is closed with no discharge noted. Otherwise normal exam. Negative chandelier sign with bimanual exam. Testing sent for vaginal pathology and GC chlamydia. UPT negative. . Vaginal pathology positive for Gardnerella. I discussed these findings with the patient. We will begin her on treatment. patient has very centered on both during this visit and her previous visit with myself. I did encourage marijuana cessation. I encouraged to follow-up with women's wellness for care. I also encouraged her to begin a vitamin. She was given return precautions. She will contact women's wellness to schedule follow-up appointment. All of her questions and concerns were addressed and she is in agreement with this plan. HPI General Mode of arrival: ambulatory. Date/Time Provider Initiated Documentation: 10/30/19 20:57. Limitations to Documentation: no limitations. Information obtained by: patient, family (significant other) and RN notes reviewed. History of Present Illness 33 year old F presents to the emergency department with the chief complaint of dysurea, vaginal discharge, described as moderate, Quality is described as other (itching), Patient started experiencing this day(s) and it has been constant. No relieving factors improve symptom(s), No exacerbating factors reported . Patient notes denies chest pain, cough, diaphoresis, fever/chills, loss of appetite, nausea/vomiting, shortness of breath and weakness. Patient did receive the following treatments prior to arrival, none Related Data Home Medications Medication Instructions Recorded Confirmed albuterol sulfate [ProAir HFA] 1 puff INHALATION Q6H PRN 10/04/18 07/22/19 Symbicort 2 puff INHALATION BID 04/12/19 04/12/19 Symbicort INHALATION 04/12/19 metronidazole 500 mg PO BID #12 tab 10/30/19 Previous Rx's Medication Instructions Recorded metronidazole 500 mg PO BID #12 tab 10/30/19 Allergies Allergy/AdvReac Type Severity Reaction Status Date / Time No Known Allergies Allergy Unverified 07/22/19 21:21 General Stated Complaint: GenMedical JEANETTE: 3 Review of Systems Constitutional Constitutional: Reports as per HPI, Denies chills, Denies fatigue, Denies fever(s) and Denies headache(s) ENT Ears, Nose, Mouth, and Throat: Denies headache(s) Cardiovascular Cardiovascular: Reports as per HPI, Denies chest pain and Denies dyspnea Respiratory Respiratory: Reports as per HPI, Denies cough and Denies dyspnea Gastrointestinal Gastrointestinal: Reports as per HPI Musculoskeletal Musculoskeletal: Reports as per HPI and Denies back pain Integumentary/Breasts Skin/Breast: Reports as per HPI and Denies rash Neurologic Neurologic: Reports as per HPI and Denies headache(s) Endocrine Endocrine: Denies fatigue [facility] Social History Smoking/Tobacco Use Status: Never Alcohol Intake: current Alcohol Intake frequency: holidays/special occasions only Drug use: Daily Substance use type: marijuana Do you feel safe at home: Yes Do you feel safe in your relationship?: Yes Exam Const General: cooperative, healthy appearing, comfortable, no acute distress, well developed and No well groomed Nutritional Appearance: well nourished and overweight Orientation: alert and awake HENMT Head: normal to inspection Mouth: moist mucous membranes Resp Effort & Inspection: normal respiratory effort, able to speak in complete sentences and no respiratory distress Auscultation: clear to auscultation bilaterally, no rales, no rhonchi and no wheezes Cardio Rate: regular rate Rhythm: regular rhythm Heart Sounds: S1 normal and S2 normal GI Inspection: normal to inspection, no edema, non-distended and obesity Palpation: soft, no hepatosplenomegaly, not firm, no guarding, not rigid and nontender Percussion: normal to percussion Auscultation: normal bowel sounds External Female Exam: external appearance normal, no erythema, no tenderness externally, no external swelling, no lesions, no lacerations and no ecchymosis Speculum Exam - Vagina: abnormal vaginal discharge yellow, vagina not atrophic, no cysts, vaginal erythema, no lacerations, no lesions, No vaginal bleeding, No tissue present in vagina, no masses, no swelling and nontender Speculum Exam - Cervix: normal appearance of the cervix and nontender Bimanual Exam- Vagina & Uterus: normal bimanual exam, normal vaginal palpation, normal cervical palpation, uterine mobility normal and No cervical tenderness Bimanual Exam- Adnexa, other: normal adnexae OB/External & Speculum: no tissue noted in vagina and No vaginal bleeding Back/Spine/Pelvis Back: no CVA tenderness Skin General skin exam: no rashes or lesions noted Trauma: no lacerations or abrasions Neuro General: alert and awake Cognition: normal cognition Speech: speech normal Gait: normal gait Psych Appearance: grossly normal and well kempt Mental Status: mental status grossly normal Speech and Movement: speech and movement normal Course Vital Signs Vital signs: Vital Signs Temperature 36.3 C L 10/30/19 20:49 Pulse 90 10/30/19 20:49 Respiratory Rate 18 10/30/19 20:49 Blood Pressure 114/78 10/30/19 20:49 Pulse Oximetry 98 10/30/19 20:49 Temperature 36.3 C L 10/30/19 20:49 Temperature Source Skin 10/30/19 20:49 Pulse 90 10/30/19 20:49 Respiratory Rate 18 10/30/19 20:49 Respiratory Effort Non-Labored 10/30/19 20:53 Blood Pressure 114/78 10/30/19 20:49 Blood Pressure Position Sitting 10/30/19 20:49 Pulse Oximetry 98 10/30/19 20:49 Oxygen Delivery Method Room Air 10/30/19 20:49 Oxygen Flow Rate 0 10/30/19 20:49 Pain Level 2 10/30/19 20:49
[2019-10-30 21:37] LABS: Bilirubin Negative (Negative); Blood Small (Negative); Clarity Clear (Clear); Glucose Negative (Negative); Ketones Negative (Negative); Leukocyte Esterase Trace (Negative); Nitrite Negative (Negative); Specific Gravity >= 1.030 (1.005-1.025); Urobilinogen 0.2 EU/dL (Up TO 0.2); pH 5.5 (5-8)
[2019-10-30 21:47] LABS: Epithelial Cells Few HPF (Negative); WBC 20-50 HPF (0-5)
[2019-10-30 21:48] LABS: Bacteria Few HPF (Negative); C & S Indicated? Yes
[2019-10-30 23:09] VITALS: BP 114/78; PULSE 90; RESP 18; TEMP 36.3; O2SAT 98
[2019-10-30] MEDS: metroNIDAZOLE 500 MG TAB 1000 MG PO (23:15)
[2019-11-01 14:48] LABS: Chlamydia Result Negative (Negative); GC Result Negative (Negative)
== END 2019-10-30 23:15 | disposition home or self-care (01) ==
PROVIDERS: Emergency Provider Physician Assistant
DX: N76.0 Acute vaginitis (principal); B96.89 Other specified bacterial agents as the cause of diseases classified elsewhere; R30.0 Dysuria
CPT/HCPCS: 81025; 87491; 87591; 99284; 81003; 81015; 87086; 87480; 87510; 87660; 99283

== ENCOUNTER 2019-12-02 09:25 | Emergency (ER) | payer SELFPAY ==
[2019-12-02 09:26] VITALS: BP 114/68; PULSE 106; RESP 22; TEMP 36.9; O2SAT 95
--- NOTE | 2019-12-02 10:00 | DI.RAD_ITS ---
EXAM: XR PORTABLE CHEST AP CLINICAL HISTORY: SOB, droplet precautions please TECHNIQUE: 2D digital imaging was performed. COMPARISON: No exams were available for comparison FINDINGS: MEDIASTINUM: Normal. HEART: Normal. PULMONARY VASCULATURE: Normal. LUNGS: Clear. PLEURAL SPACE: No pleural effusion or pneumothorax. BONE:Normal. OTHER FINDINGS:Normal. IMPRESSION: No acute pulmonary findings. DATA REPOSITORY: RADIATION DOSE DELIVERED:
--- NOTE | 2019-12-02 13:04 | ED.GENADUL_ITS ---
Discharge Plan Disposition Patient Disposition: HOME Condition: Stable Discharge Details Chief Complaint: RespSymp Clinical Impression: Influenza B Primary Care Provider: None,None ED Provider: Radha Spicer Home Meds and New Rx's Prescriptions: Continued albuterol sulfate [ProAir HFA] 90 mcg/actuation Hfa Aerosol Inhaler 1 puff INHALATION Q6H PRNRF: 0 Discharge Instructions Instructions: Influenza (ED) Additional Instructions: Please return immediately to the emergency department if you develop any new or worsening symptoms, if your condition does not improve as expected, or if you become otherwise concerned. It is extremely important that you call soon as possible to make an appointment to be seen in follow-up for this visit by your primary care doctor. Stand Alone Forms: Work Release Discharge Data Discharge Date/Time-TO BE ENTERED AT DEPARTURE: 12/02/19 13:28 Medical Decision Making Gabby Collins is a 34-year-old woman with history of asthma who presented to the emergency department with 3 weeks of intermittent mild headache, also with subjective fevers, sore throat, and productive cough over the past 3 to 4 days. On exam patient is well and nontoxic-appearing. Patient was tachycardic at triage, no tachycardia on my exam, heart rate 80. Lungs clear to auscultation, normal work of breathing. No meningismus. Concern for influenza, other viral respiratory infection, less likely pneumonia. Possible COVID-19. Exam/history is not consistent with sepsis, meningitis, impending airway compromise. Plan for chest x-ray, influenza swab. Patient presentation was discussed with the [facility] health, who reviewed case, stated no Covid-19 testing to be performed. Influenza swab positive for influenza B. Chest x-ray negative. Patient ate and drank in the emergency department without issue. I had a lengthy discussion with Patient regarding return to emergency department precautions, home care, and importance of outpatient follow-up. Pt verbalizes understanding of the plan and is amenable. Patient discharged to home with clear plan for outpatient follow-up. All questions were answered. Disposition decision was made weighing the risks and benefits of hospitalization versus outpatient treatment, the risk for further decompensation, and the patient's wishes. Droplet precautions maintained by all staff during this encounter. Medical Records Medical records reviewed: Yes I reviewed the patient's medical records. Imaging Data Radiologic Study: Attestation: I personally reviewed and interpreted this imaging study as follows: Radiologist's impression: EXAM: XR PORTABLE CHEST AP CLINICAL HISTORY: SOB, droplet precautions please TECHNIQUE: 2D digital imaging was performed. COMPARISON: No exams were available for comparison FINDINGS: MEDIASTINUM: Normal. HEART: Normal. PULMONARY VASCULATURE: Normal. LUNGS: Clear. PLEURAL SPACE: No pleural effusion or pneumothorax. BONE:Normal. OTHER FINDINGS:Normal. IMPRESSION: No acute pulmonary findings. Lab Data Lab results reviewed: Yes I reviewed the patient's lab results. Labs: 12/02/19 12:25 Nasopharynx Influenza Types A,B Antigen - Final HPI General Mode of arrival: ambulatory . Date/Time Provider Initiated Documentation: 12/02/19 10:05 . Limitations to Documentation: no limitations . Information obtained by: patient, RN notes reviewed and old records reviewed . HPI Narrative: Gabby Collins is a 34 y/o woman with history of asthma presenting to the emergency department with cough, subjective fever, headache. Patient reports that approximately 3 weeks ago she developed a mild headache that has been intermittent since onset. Patient reports that headache is mild, is in the front of her head is not different from other headache she has had in the past other than that it seems to be persisting for a longer time period. Patient reports that over the last 3 to 4 days she has developed a sore throat, subjective fevers, chills, and productive cough. Patient reports that she has seen white streaking of blood in her sputum this morning, states that her blood seems to be much less than a teaspoon. Patient states that she has no other pain. No vomiting, no diarrhea, no numbness, no weakness, no rash. 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 She denies any personal travel, contact with people who have traveled, or known sick contacts. She states that she has been eating and drinking as usual. Patient reports that she has been able to go about her daily activities as usual. Related Data Home Medications Medication Instructions Recorded Confirmed albuterol sulfate [ProAir HFA] 1 puff INHALATION Q6H PRN 10/04/18 12/02/19 Allergies Allergy/AdvReac Type Severity Reaction Status Date / Time No Known Allergies Allergy Unverified 12/02/19 09:31 General Stated Complaint: RespSymp JEANETTE: 3 Review of Systems Narrative: Constitutional: Reports subjective fevers, chills Eyes: denies eye pain ENT: denies ear pain, dental pain, reports sore throat Cardiovascular: denies chest pain Respiratory: denies SOB, reports cough GI: denies abdominal pain, vomiting, diarrhea : denies flank pain MSK: denies back pain, neck pain, arthralgias, myalgias Skin: denies rash Neuro: denies numbness, weakness, reports headache PFSH Social History Smoking/Tobacco Use Status: Never Alcohol Intake: current Alcohol Intake frequency: holidays/special occasions only Drug use: Daily Substance use type: marijuana Do you feel safe at home: Yes Do you feel safe in your relationship?: Yes Exam Narrative Exam Narrative: Constitutional: well and [id number], pleasant, conversing normally HENT: head atraumatic/normocephalic/normal inspection, mucous membranes moist, normal examination of the oropharynx and posterior pharynx without erythema/edema/lesion, no drooling, no pooling of secretions, no tongue elevation Eyes: conjunctiva normal, sclera normal, pupils 3mm b/l Neck: no stridor, normal ROM, trachea midline, supple, nontender to palpation Chest: normal inspection Resp: normal work of breathing, LCTAB Cardio: normal rate, normal rhythm, no murmur appreciated Back: normal inspection, no rash Skin: warm, dry, normal color, no rash Neuro: alert, not altered, grossly non-focal, normal tone Ext: no edema, no posterior calf tenderness to palpation Psych: normal mood, normal affect, normal behavior Course Vital Signs Vital signs: Vital Signs Temperature 36.9 C 12/02/19 09:26 Pulse 106 H 12/02/19 09:26 Respiratory Rate 22 12/02/19 09:26 Blood Pressure 114/68 12/02/19 09:26 Pulse Oximetry 95 12/02/19 09:26 Temperature 36.9 C 12/02/19 09:26 Temperature Source Skin 12/02/19 09:26 Pulse 106 H 12/02/19 09:26 Respiratory Rate 22 12/02/19 09:26 Respiratory Effort 12/02/19 09:42 Respiratory Depth Normal 12/02/19 09:42 Blood Pressure 114/68 12/02/19 09:26 Blood Pressure Position Sitting 12/02/19 09:26 Pulse Oximetry 95 12/02/19 09:26 Oxygen Delivery Method Room Air 12/02/19 09:26 Oxygen Flow Rate 0 12/02/19 09:26 Pain Level 0 12/02/19 09:26 Lab/Test Results Lab/Test Results: 12/02/19 12:25 Nasopharynx Influenza Types A,B Antigen - Final POC- Test(urine) Negative
[2019-12-02 13:27] VITALS: BP 114/68; PULSE 106; RESP 22; TEMP 36.9; O2SAT 95
== END 2019-12-02 13:28 | disposition home or self-care (01) ==
PROVIDERS: Emergency Provider Student in an Organized Health Care Education/Training Program
DX: J10.1 Influenza due to other identified influenza virus with other respiratory manifestations (principal); R51 Headache; J45.909 Unspecified asthma, uncomplicated
CPT/HCPCS: 81025; 87449; 99283; 71045; 99284